=== PATIENT | male | born 1980 | race Hispanic/Latino ===

== ENCOUNTER 2021-08-17 06:05 | Emergency (ER) | payer SELFPAY ==
[~2021-08-17] VITALS: Ht 185.4 cm; Wt 95.8 kg
[2021-08-17] MEDS ORDERED: KETOROLAC TROMETHAMINE 30 MG/ML VIAL IV STA (07:10)
[2021-08-17] MEDS ORDERED: SODIUM CHLORIDE 0.9% 1000ML 1,000 ML IV STA (07:10)
[2021-08-17] MEDS ORDERED: IOPAMIDOL 370 MG/ML 200 ML INFUS..BTL INJ ONE (07:23)
[2021-08-17] MEDS ORDERED: SODIUM CHLORIDE 0.9% 50ML 50 ML ONE (07:23)
[2021-08-17] MEDS ORDERED: KETOROLAC TROMETHAMINE 30 MG/ML VIAL ONE (07:30)
[2021-08-17] MEDS ORDERED: SODIUM CHLORIDE 0.9% 1000ML 1,000 ML ONE (07:30)
[2021-08-17] MEDS ORDERED: METRONIDAZOLE500 MG PO (08:47)
[2021-08-17] MEDS ORDERED: ONDANSETRON ODT4 MG PO (08:47)
[2021-08-17] MEDS ORDERED: ACETAMINOPHEN-1 EAC4 PO (08:47)
[2021-08-17] MEDS ORDERED: CIPRO500 MG PO (08:47)
== END 2021-08-17 08:56 | disposition home or self-care (01) ==
LOC: FSED 06:27
DX: R10.12 Left upper quadrant pain (principal); K57.32 Diverticulitis of large intestine without perforation or abscess without bleeding
CPT/HCPCS: 74177; 80048; 80076; 81003; 85025; 96374; 99284; J1885; J7030; Q9967